=== PATIENT | male | born 1940 | race Caucasian/White ===

== ENCOUNTER 2021-03-30 15:40 | Inpatient (IN) | payer MEDICARE, OTHER, SELFPAY ==
[2021-03-30] MEDS ORDERED: Sodium Chloride 0.9% 10 ML Syringe FLUSH PRN (15:54)
[2021-03-30] MEDS ORDERED: Diltiazem 50 MG/10 ML SDV IVPUSH ONE (15:57)
[2021-03-30] MEDS ORDERED: Sodium Chloride 0.9% 1,000 ML IV SCH (16:00)
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
--- NOTE | 2021-03-30 17:00 | CR ---
Chest: Portable view of the chest was obtained. Comparison: Prior chest x-ray of 04/11/16. Heart size and mediastinum are normal. Slight atelectasis is seen within the left lung base. Lungs otherwise are clear. Previous cervical spine surgery is noted. Mild degenerative change is scattered within the thoracic spine. Osteopenia is present. Impression: 1. Findings as noted above. 2. Nothing acute is seen on portable chest x-ray. Diagnostic code #2
--- NOTE | 2021-03-30 17:05 | CT ---
Head CT Technique: Multiple axial sections through the brain were obtained. Intravenous contrast was not utilized. Reconstructed coronal and sagittal images were obtained. Comparison: No prior intracranial imaging is available. Findings: Ventricles along with basal cisterns and sulci over the convexities are mildly prominent. Diminished density is noted within the periventricular and subcortical white matter which is felt compatible with small vessel ischemic demyelination change. No evidence of intracranial hemorrhage is seen. No midline shift or mass-effect is seen. Bone window settings were reviewed. Visualized mastoid sinuses are clear. Slight mucosal thickening is seen within the ethmoid sinuses. No acute calvarial finding is appreciated. Impression: 1. Senescent change as described above. 2. Slight mucosal thickening within the ethmoid sinuses which is most likely chronic. 3. No acute intracranial abnormality is appreciated on noncontrast head CT study. Diagnostic code #2
[2021-03-30] MEDS ORDERED: Diltiazem 100 MG in Sodium Chloride 0.9% 100 ML IV SCH (17:30)
[2021-03-30] MEDS ORDERED: Ondansetron 4 MG/2 ML SDV IV PRN (20:46)
[2021-03-30] MEDS ORDERED: Acetaminophen 325 MG Tab PO PRN (20:46)
[2021-03-30] MEDS ORDERED: Albuterol 0.083% 2.5 MG/3 ML Neb Soln NEB PRN (20:46)
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
[2021-03-30] MEDS ORDERED: Insulin Glargine,Human Rec. Analog 100 Units/ML 3 ML Pen SUBCUT SCH ×2 (21:00)
[2021-03-30] MEDS ORDERED: Insulin Glargine,Hum.Rec.Anlog 100 UNIT/ML 3 ML Pen SUBCUT SCH (21:00)
[2021-03-30] MEDS: Insulin Lispro 100 Unit/ML 3 ML KwikPen SUBCUT SCH (22:17)
[2021-03-31] MEDS ORDERED: Insulin Lispro 100 Unit/ML 3 ML KwikPen SUBCUT SCH ×4 (07:00→16:00)
[2021-03-31 07:25] LABS: HEMOGLOBIN A1C 8.9 %
[2021-03-31] MEDS: Insulin Lispro 100 Unit/ML 3 ML KwikPen SUBCUT SCH (07:30)
[2021-03-31] MEDS ORDERED: Apixaban 5 MG Tab PO SCH (09:00)
[2021-03-31] MEDS ORDERED: Enoxaparin 40 MG/0.4 ML Syringe SUBCUT SCH (09:00)
[2021-03-31 09:23] VITALS: BP 132/59; PULSE 71
--- NOTE | 2021-03-31 10:49 | PCM.DCSUM1 ---
Discharge Summary - Hospital Course HPI Initial Comments: - History of Present Illness Initial Comments - Free Text/Narative: 80-year-old male was brought to the emergency department by EMS after being found unresponsive outdoor in his riding lawn more/snowblower. Patient was using the plastic cab converter and his significant other found him slumped over in a ditch with the motor running and the wheels still turning. When she went out there he was unresponsive and called EMS. Patient has a history of low blood sugars, as low as in the 20s because of his irregular diet and insulin regimen. On EMS arrived he was given glucose without improvement. On arrival in the emergency department the RN thought he smelled like exhaust so a carboxyhemoglobin was run and it was significantly elevated at 30.2. Patient was also found to be in atrial fibrillation with heart rates above 110. He was given diltiazem 20 mg IV push and started on a diltiazem drip. He was also put on high flow nonrebreather oxygen. Troponin level was slightly elevated and felt to be secondary to demand ischemia. Patient was very confused on arrival and when I spoke with him so history was obtained through significant other and emergency department notes. Patient was then transferred to the ICU. Assessment/Plan Comment:: 86-year-old male with history of diabetes mellitus, insulin-dependent, admitted with carbon monoxide poisoning and A. fib with RVR. Carbon monoxide poisoning * Secondary to riding lawn more with enclosed after market cabin * Started on nonrebreather oxygen in the emergency department * Patient starting to become less confused and more alert Atrial fibrillation with RVR Elevated troponin * New onset A. fib * Heart rates in the 110s to 130s * Started on diltiazem drip in the emergency department * Mild increase in troponin of 0.06 likely secondary to demand ischemia * This will likely resolve with improvement of carbon monoxide poisoning and rate control. Insulin-dependent type 2 diabetes with history of hypoglycemic episodes. * There is some confusion on how much insulin he is on. The chart has 14 of Lantus and he states is 18. There is also differences in fast acting insulin. * Patient states he often has high and low blood sugars. * He also states he is noncompliant with his diet and just gives himself more insulin when he eats poorly. Plan * Admit to ICU * Continue diltiazem drip to keep rate under 100 * Continue high flow nonrebreather * Recheck carboxyhemoglobin * Restart home insulin dose when taking orally * Recheck CBC, CMP, and magnesium * VTE prophylaxis with Lovenox * CODE STATUS: Full code * Anticipate discharge in 1 to 2 days. - Mortality Measure Prognosis:: Good Diagnosis: Stroke: No - Discharge Data Discharge Date: 03/31/21 Discharge Disposition: Home, Self-Care 01 Condition: Good - Referral to Home Health Primary Care Physician: Carmen Randle - Discharge Diagnosis/Problem(s) (1) Atrial fibrillation with RVR SNOMED Code(s): 798698840055358 ICD Code: I48.91 - UNSPECIFIED ATRIAL FIBRILLATION Status: Acute Current Visit: No (2) Carbon monoxide poisoning SNOMED Code(s): 82692439 ICD Code: T58.91XA - TOXIC EFFECT OF CARB MONX FROM UNSP SOURCE, ACC, INIT Status: Acute Current Visit: No - Patient Summary/Data Hospital Course: Patient had an uneventful course. He had a drop in his her carboxyhemoglobin to 4 and we kept him on 100% O2 for another 2 to 3 hours. Patient converted to normal sinus rhythm early this morning. Patient did have one low blood sugar in the 40s while here after getting mealtime insulin and sliding scale. Hemoglobin A1c was 8.9. Patient will be discharged home in good condition. - Patient Instructions Diet: Usual Diet as Tolerated, Diabetic Diet Driving: May Drive Today Showering/Bathing: May Shower Notify Provider of: Fever, Nausea and/or Vomiting Other/Special Instructions: Follow up with PCP. - Discharge Plan *PRESCRIPTION DRUG MONITORING PROGRAM REVIEWED*: No *COPY OF PRESCRIPTION DRUG MONITORING REPORT IN PATIENT ALBERTO: No Home Medications: Home Meds Insulin Aspart [NovoLOG] 5 unit SUBCUT BIDMEALS 04/11/16 [History] Insulin Glarg,Human.Rec.Analog [Lantus Solostar] 14 unit SUBCUT BEDTIME 04/11/16 [History] Oxygen Therapy Mode: Room Air Patient Handouts: Steps to Quit Smoking, [id number], Diabetes Mellitus and Sick Day Management, Atrial Fibrillation Referrals: Darby Greene MD [Ordering Only Provider] - (Please follow-up with Dr. Greene at the [facility]. They will call you Saturday or Saturday to schedule an appointment, if they do not call Saturday please call them to schedule your hospital follow up and establish care. ) - Discharge Summary/Plan Comment DC Time >30 min.: Yes Total # of Minutes for Discharge Time: 40 minutes. total time spent includes seeing the patient, doing discharge paperwork, and arranging care. - General Info Date of Service: 03/31/21 Admission Dx/Problem (Free Text: Admission Diagnosis/Problem Admission Diagnosis/Problem Atrial fibrillation Subjective Update: Patient is wide awake and alert this morning. He has no complaints. Functional Status: Reports: Pain Controlled - Review of Systems General: Reports: No Symptoms HEENT: Reports: No Symptoms Pulmonary: Reports: No Symptoms Cardiovascular: Reports: No Symptoms Musculoskeletal: Reports: No Symptoms Neurological: Reports: No Symptoms Psychiatric: Reports: No Symptoms - Patient Data Vitals - Most Recent: Last Vital Signs Temp 97.8 F 03/31/21 08:03 Pulse 71 03/31/21 08:03 Resp 20 03/31/21 08:03 BP 132/59 L 03/31/21 08:03 Pulse Ox 98 03/31/21 08:03 Weight - Most Recent: 138 lb I&O - Last 24 hours: Intake & Output 03/30/21 03/31/21 03/31/21 22:59 06:59 14:59 Intake Total 609 Balance 609 Lab Results - Last 24 hrs: Laboratory Results - last 24 hr 03/30/21 03/30/21 03/30/21 Range/Units 15:51 15:56 16:35 WBC 17.65 H (4.23-9.07) K/mm3 RBC 4.68 (4.63-6.08) M/mm3 Hgb 14.3 D (13.7-17.5) gm/dl Hct 42.4 (40.1-51.0) % MCV 90.6 (79.0-92.2) fl MCH 30.6 (25.7-32.2) pg MCHC 33.7 (32.2-35.5) g/dl RDW Std Deviation 42.7 (35.1-43.9) fL Plt Count 249 (163-337) K/mm3 MPV 10.1 (9.4-12.3) fl Neut % (Auto) 88.2 H (34.0-67.9) % Lymph % (Auto) 5.8 L (21.8-53.1) % [place] % (Auto) 5.6 (5.3-12.2) % Eos % (Auto) 0.1 L (0.8-7.0) Baso % (Auto) 0.1 (0.1-1.2) % Neut # (Auto) 15.58 H (1.78-5.38) K/mm3 Lymph # (Auto) 1.03 L (1.32-3.57) K/mm3 [place] # (Auto) 0.98 H (0.30-0.82) K/mm3 Eos # (Auto) 0.01 L (0.04-0.54) K/mm3 Baso # (Auto) 0.02 (0.01-0.08) K/mm3 ABG Carboxyhemoglobin (0.00-1.50) %THgb Sodium (136-145) mEq/L Potassium (3.5-5.1) mEq/L Chloride (98-107) mEq/L Carbon Dioxide (21-32) mEq/L Anion Gap (5-15) BUN (7-18) mg/dL Creatinine (0.7-1.3) mg/dL Est Cr Clr Drug Dosing Estimated GFR (MDRD) (>60) mL/min BUN/Creatinine Ratio (14-18) Glucose (70-99) mg/dL POC Glucose 149 H (70-99) mg/dL Hemoglobin A1c ( - 5.6) % Calcium (8.5-10.1) mg/dL Phosphorus (2.6-4.7) mg/dL Magnesium (1.8-2.4) mg/dL Total Bilirubin (0.2-1.0) mg/dL AST (15-37) U/L ALT (16-63) U/L Alkaline Phosphatase (46-116) U/L Troponin I (0.00-0.056) ng/mL NT-Pro-B Natriuret Pep (0-450) pg/mL Total Protein (6.4-8.2) g/dl Albumin (3.4-5.0) g/dl Globulin gm/dL Albumin/Globulin Ratio (1-2) SARS-CoV-2 RNA (MAHESH) Negative (NEGATIVE) 03/30/21 03/30/21 03/30/21 Range/Units 16:35 16:35 16:40 WBC (4.23-9.07) K/mm3 RBC (4.63-6.08) M/mm3 Hgb (13.7-17.5) gm/dl Hct (40.1-51.0) % MCV (79.0-92.2) fl MCH (25.7-32.2) pg MCHC (32.2-35.5) g/dl RDW Std Deviation (35.1-43.9) fL Plt Count (163-337) K/mm3 MPV (9.4-12.3) fl Neut % (Auto) (34.0-67.9) % Lymph % (Auto) (21.8-53.1) % [place] % (Auto) (5.3-12.2) % Eos % (Auto) (0.8-7.0) Baso % (Auto) (0.1-1.2) % Neut # (Auto) (1.78-5.38) K/mm3 Lymph # (Auto) (1.32-3.57) K/mm3 [place] # (Auto) (0.30-0.82) K/mm3 Eos # (Auto) (0.04-0.54) K/mm3 Baso # (Auto) (0.01-0.08) K/mm3 ABG Carboxyhemoglobin 30.7 H (0.00-1.50) %THgb Sodium 139 (136-145) mEq/L Potassium 3.5 (3.5-5.1) mEq/L Chloride 102 (98-107) mEq/L Carbon Dioxide 26 (21-32) mEq/L Anion Gap 14.5 (5-15) BUN 19 H (7-18) mg/dL Creatinine 1.2 (0.7-1.3) mg/dL Est Cr Clr Drug Dosing TNP Estimated GFR (MDRD) 58 (>60) mL/min BUN/Creatinine Ratio 15.8 (14-18) Glucose 145 H (70-99) mg/dL POC Glucose (70-99) mg/dL Hemoglobin A1c ( - 5.6) % Calcium 9.4 (8.5-10.1) mg/dL Phosphorus (2.6-4.7) mg/dL Magnesium (1.8-2.4) mg/dL Total Bilirubin 0.5 (0.2-1.0) mg/dL AST 25 (15-37) U/L ALT 24 (16-63) U/L Alkaline Phosphatase 79 (46-116) U/L Troponin I 0.060 H* (0.00-0.056) ng/mL NT-Pro-B Natriuret Pep 499 H (0-450) pg/mL Total Protein 7.3 (6.4-8.2) g/dl Albumin 3.8 (3.4-5.0) g/dl Globulin 3.5 gm/dL Albumin/Globulin Ratio 1.1 (1-2) SARS-CoV-2 RNA (MAHESH) (NEGATIVE) 03/30/21 03/30/21 03/30/21 Range/Units 19:32 20:54 22:15 WBC (4.23-9.07) K/mm3 RBC (4.63-6.08) M/mm3 Hgb (13.7-17.5) gm/dl Hct (40.1-51.0) % MCV (79.0-92.2) fl MCH (25.7-32.2) pg MCHC (32.2-35.5) g/dl RDW Std Deviation (35.1-43.9) fL Plt Count (163-337) K/mm3 MPV (9.4-12.3) fl Neut % (Auto) (34.0-67.9) % Lymph % (Auto) (21.8-53.1) % [place] % (Auto) (5.3-12.2) % Eos % (Auto) (0.8-7.0) Baso % (Auto) (0.1-1.2) % Neut # (Auto) (1.78-5.38) K/mm3 Lymph # (Auto) (1.32-3.57) K/mm3 [place] # (Auto) (0.30-0.82) K/mm3 Eos # (Auto) (0.04-0.54) K/mm3 Baso # (Auto) (0.01-0.08) K/mm3 ABG Carboxyhemoglobin 4.4 H (0.00-1.50) %THgb Sodium (136-145) mEq/L Potassium (3.5-5.1) mEq/L Chloride (98-107) mEq/L Carbon Dioxide (21-32) mEq/L Anion Gap (5-15) BUN (7-18) mg/dL Creatinine (0.7-1.3) mg/dL Est Cr Clr Drug Dosing Estimated GFR (MDRD) (>60) mL/min BUN/Creatinine Ratio (14-18) Glucose (70-99) mg/dL POC Glucose 189 H 330 H (70-99) mg/dL Hemoglobin A1c ( - 5.6) % Calcium (8.5-10.1) mg/dL Phosphorus (2.6-4.7) mg/dL Magnesium (1.8-2.4) mg/dL Total Bilirubin (0.2-1.0) mg/dL AST (15-37) U/L ALT (16-63) U/L Alkaline Phosphatase (46-116) U/L Troponin I (0.00-0.056) ng/mL NT-Pro-B Natriuret Pep (0-450) pg/mL Total Protein (6.4-8.2) g/dl Albumin (3.4-5.0) g/dl Globulin gm/dL Albumin/Globulin Ratio (1-2) SARS-CoV-2 RNA (MHAESH) (NEGATIVE) 03/31/21 03/31/21 03/31/21 Range/Units 05:40 05:40 05:40 WBC 9.78 H (4.23-9.07) K/mm3 RBC 4.13 L (4.63-6.08) M/mm3 Hgb 12.2 L D (13.7-17.5) gm/dl Hct 37.9 L (40.1-51.0) % MCV 91.8 (79.0-92.2) fl MCH 29.5 (25.7-32.2) pg MCHC 32.2 (32.2-35.5) g/dl RDW Std Deviation 44.4 H (35.1-43.9) fL Plt Count 207 (163-337) K/mm3 MPV 10.6 (9.4-12.3) fl Neut % (Auto) 73.5 H (34.0-67.9) % Lymph % (Auto) 17.6 L (21.8-53.1) % [place] % (Auto) 8.4 (5.3-12.2) % Eos % (Auto) 0.1 L (0.8-7.0) Baso % (Auto) 0.3 (0.1-1.2) % Neut # (Auto) 7.19 H (1.78-5.38) K/mm3 Lymph # (Auto) 1.72 (1.32-3.57) K/mm3 [place] # (Auto) 0.82 (0.30-0.82) K/mm3 Eos # (Auto) 0.01 L (0.04-0.54) K/mm3 Baso # (Auto) 0.03 (0.01-0.08) K/mm3 ABG Carboxyhemoglobin (0.00-1.50) %THgb Sodium 140 (136-145) mEq/L Potassium 4.1 (3.5-5.1) mEq/L Chloride 104 (98-107) mEq/L Carbon Dioxide 28 (21-32) mEq/L Anion Gap 12.1 (5-15) BUN 24 H (7-18) mg/dL Creatinine 1.1 (0.7-1.3) mg/dL Est Cr Clr Drug Dosing 46.63 Estimated GFR (MDRD) > 60 (>60) mL/min BUN/Creatinine Ratio 21.8 H (14-18) Glucose 255 H (70-99) mg/dL POC Glucose (70-99) mg/dL Hemoglobin A1c 8.9 H ( - 5.6) % Calcium 9.0 (8.5-10.1) mg/dL Phosphorus 3.0 (2.6-4.7) mg/dL Magnesium 2.2 (1.8-2.4) mg/dL Total Bilirubin 0.4 (0.2-1.0) mg/dL AST 58 H (15-37) U/L ALT 36 (16-63) U/L Alkaline Phosphatase 70 (46-116) U/L Troponin I (0.00-0.056) ng/mL NT-Pro-B Natriuret Pep (0-450) pg/mL Total Protein 6.0 L (6.4-8.2) g/dl Albumin 3.2 L (3.4-5.0) g/dl Globulin 2.8 gm/dL Albumin/Globulin Ratio 1.1 (1-2) SARS-CoV-2 RNA (MAHESH) (NEGATIVE) 03/31/21 03/31/21 03/31/21 Range/Units 05:53 09:55 10:13 WBC (4.23-9.07) K/mm3 RBC (4.63-6.08) M/mm3 Hgb (13.7-17.5) gm/dl Hct (40.1-51.0) % MCV (79.0-92.2) fl MCH (25.7-32.2) pg MCHC (32.2-35.5) g/dl RDW Std Deviation (35.1-43.9) fL Plt Count (163-337) K/mm3 MPV (9.4-12.3) fl Neut % (Auto) (34.0-67.9) % Lymph % (Auto) (21.8-53.1) % [place] % (Auto) (5.3-12.2) % Eos % (Auto) (0.8-7.0) Baso % (Auto) (0.1-1.2) % Neut # (Auto) (1.78-5.38) K/mm3 Lymph # (Auto) (1.32-3.57) K/mm3 [place] # (Auto) (0.30-0.82) K/mm3 Eos # (Auto) (0.04-0.54) K/mm3 Baso # (Auto) (0.01-0.08) K/mm3 ABG Carboxyhemoglobin (0.00-1.50) %THgb Sodium (136-145) mEq/L Potassium (3.5-5.1) mEq/L Chloride (98-107) mEq/L Carbon Dioxide (21-32) mEq/L Anion Gap (5-15) BUN (7-18) mg/dL Creatinine (0.7-1.3) mg/dL Est Cr Clr Drug Dosing Estimated GFR (MDRD) (>60) mL/min BUN/Creatinine Ratio (14-18) Glucose (70-99) mg/dL POC Glucose 253 H 46 L* 50 L* (70-99) mg/dL Hemoglobin A1c ( - 5.6) % Calcium (8.5-10.1) mg/dL Phosphorus (2.6-4.7) mg/dL Magnesium (1.8-2.4) mg/dL Total Bilirubin (0.2-1.0) mg/dL AST (15-37) U/L ALT (16-63) U/L Alkaline Phosphatase (46-116) U/L Troponin I (0.00-0.056) ng/mL NT-Pro-B Natriuret Pep (0-450) pg/mL Total Protein (6.4-8.2) g/dl Albumin (3.4-5.0) g/dl Globulin gm/dL Albumin/Globulin Ratio (1-2) SARS-CoV-2 RNA (MAHESH) (NEGATIVE) 03/31/21 Range/Units 10:40 WBC (4.23-9.07) K/mm3 RBC (4.63-6.08) M/mm3 Hgb (13.7-17.5) gm/dl Hct (40.1-51.0) % MCV (79.0-92.2) fl MCH (25.7-32.2) pg MCHC (32.2-35.5) g/dl RDW Std Deviation (35.1-43.9) fL Plt Count (163-337) K/mm3 MPV (9.4-12.3) fl Neut % (Auto) (34.0-67.9) % Lymph % (Auto) (21.8-53.1) % [place] % (Auto) (5.3-12.2) % Eos % (Auto) (0.8-7.0) Baso % (Auto) (0.1-1.2) % Neut # (Auto) (1.78-5.38) K/mm3 Lymph # (Auto) (1.32-3.57) K/mm3 [place] # (Auto) (0.30-0.82) K/mm3 Eos # (Auto) (0.04-0.54) K/mm3 Baso # (Auto) (0.01-0.08) K/mm3 ABG Carboxyhemoglobin (0.00-1.50) %THgb Sodium (136-145) mEq/L Potassium (3.5-5.1) mEq/L Chloride (98-107) mEq/L Carbon Dioxide (21-32) mEq/L Anion Gap (5-15) BUN (7-18) mg/dL Creatinine (0.7-1.3) mg/dL Est Cr Clr Drug Dosing Estimated GFR (MDRD) (>60) mL/min BUN/Creatinine Ratio (14-18) Glucose (70-99) mg/dL POC Glucose 71 (70-99) mg/dL Hemoglobin A1c ( - 5.6) % Calcium (8.5-10.1) mg/dL Phosphorus (2.6-4.7) mg/dL Magnesium (1.8-2.4) mg/dL Total Bilirubin (0.2-1.0) mg/dL AST (15-37) U/L ALT (16-63) U/L Alkaline Phosphatase (46-116) U/L Troponin I (0.00-0.056) ng/mL NT-Pro-B Natriuret Pep (0-450) pg/mL Total Protein (6.4-8.2) g/dl Albumin (3.4-5.0) g/dl Globulin gm/dL Albumin/Globulin Ratio (1-2) SARS-CoV-2 RNA (MAHESH) (NEGATIVE) Med Orders - Current: Current Medications Acetaminophen (Acetaminophen 325 Mg Tab) 650 mg PO Q4H PRN PRN Reason: Pain (Mild 1-3)/fever Albuterol (Albuterol 0.083% 2.5 Mg/3 Ml Neb Soln) 2.5 mg NEB Q2H PRN PRN Reason: Shortness Of Breath/wheezing Diltiazem HCl 100 mg/ Sodium (Chloride) 100 mls @ 5 mls/hr IV TITRATE [place]; Protocol Last Titration: 03/31/21 01:47 Dose: 0 mg/hr, 0 mls/hr Documented by: Insulin Glargine (Insulin Glargine,Hum.Rec.Anlog 100 Unit/Ml 3 Ml Pen) 18 unit SUBCUT BEDTIME [place] Insulin Human Lispro (Insulin Lispro 100 Unit/Ml 3 Ml Kwikpen) 0 unit SUBCUT QIDACANDBED [place]; Protocol Last Admin: 03/31/21 07:30 Dose: 6 units Documented by: Insulin Human Lispro (Insulin Lispro 100 Unit/Ml 3 Ml Kwikpen) 6 unit SUBCUT TIDMEALS [place] Last Admin: 03/31/21 07:30 Dose: 6 units Documented by: Ondansetron HCl (Ondansetron 4 Mg/2 Ml Sdv) 4 mg IV Q6H PRN PRN Reason: Nausea/Vomiting Sodium Chloride (Sodium Chloride 0.9% 10 Ml Syringe) 10 ml FLUSH ASDIRECTED PRN PRN Reason: Keep Vein Open Last Admin: 03/30/21 16:41 Dose: 10 ml Documented by: Discontinued Medications Apixaban (Apixaban 5 Mg Tab) 5 mg PO BID [facility] Diltiazem HCl (Diltiazem 50 Mg/10 Ml Sdv) 20 mg IVPUSH ONETIME ONE Stop: 03/30/21 15:58 Last Admin: 03/30/21 16:41 Dose: 20 mg Documented by: Enoxaparin Sodium (Enoxaparin 40 Mg/0.4 Ml Syringe) 40 mg SUBCUT DAILY [facility] Sodium Chloride (Normal Saline) 1,000 mls @ 999 mls/hr IV ONETIME [place] Last Admin: 03/30/21 16:41 Dose: 999 mls/hr Documented by: Insulin Glargine (Insulin Glargine,Human Rec. Analog 100 Units/Ml 3 Ml Pen) 14 units SUBCUT BEDTIME [place] Insulin Glargine (Insulin Glargine,Human Rec. Analog 100 Units/Ml 3 Ml Pen) 18 units SUBCUT BEDTIME [facility] Last Admin: 03/30/21 22:19 Dose: 18 units Documented by: Insulin Human Lispro (Insulin Lispro 100 Unit/Ml 3 Ml Kwikpen) 8 unit SUBCUT ACDINNER [facility] Insulin Human Lispro (Insulin Lispro 100 Unit/Ml 3 Ml Kwikpen) 5 unit SUBCUT BID@0700,1200 [facility] Insulin Human Lispro (Insulin Lispro 100 Unit/Ml 3 Ml Kwikpen) 8 unit SUBCUT ACDINNER [facility] - Exam Quality Assessment: Denies: Supplemental Oxygen General: Reports: Alert, Oriented HEENT: Reports: Pupils Equal, Mucous Membr. Moist/[place] Neck: Reports: Supple Lungs: Reports: Clear to Auscultation, Normal Respiratory Effort Cardiovascular: Reports: Regular Rate, Regular Rhythm GI/Abdominal Exam: Normal Bowel Sounds, Soft, Non-Tender, No Organomegaly, No Distention, No Abnormal Bruit, No Mass Extremities: Normal Inspection, Normal Range of Motion, Non-Tender, No Pedal Edema, Normal Capillary Refill Skin: Reports: Warm, Dry, Intact Neurological: Reports: No New Focal Deficit Psy/Mental Status: Reports: Alert, Normal Affect, Normal Mood
--- NOTE | 2021-03-31 10:59 | PCM.EKG ---
#1 Interpretation EKG Date: 03/31/21 Time: 07:36 Rhythm: NSR Rate (Beats/Min): 68 [place]: Normal P-Wave: Present QRS: Normal ST-T: Normal QT: Normal Comparison: Change From Previous EKG EKG Interpretation Comments: Back to sinus rhythm. Nonspecific ST wave changes in the lateral leads. Abnormal EKG
[2021-03-31] MEDS ORDERED: Insulin Glargine,Hum.Rec.Anlog 100 UNIT/ML 3 ML Pen SUBCUT SCH (21:00)
== END 2021-03-31 11:20 | disposition home or self-care (01) | DRG 918 ==
LOC: JD.ED 15:40 → JD.ICU 18:42
PROVIDERS: ADMIT Family Medicine; ATTEND Family Medicine
DX: T58.91XA Toxic effect of carbon monoxide from unspecified source, accidental (unintentional), initial encounter (principal); I24.8 Other forms of acute ischemic heart disease; I48.91 Unspecified atrial fibrillation; H54.7 Unspecified visual loss; M19.90 Unspecified osteoarthritis, unspecified site; Z20.822 Contact with and (suspected) exposure to COVID-19; E11.9 Type 2 diabetes mellitus without complications; Z79.4 Long term (current) use of insulin; Z86.73 Personal history of transient ischemic attack (TIA), and cerebral infarction without residual deficits
CPT/HCPCS: 36415; 70450; 71045; 80053; 82375; 82947; 83880; 84484; 85025; 87635; 93005; J3490; J7030; 83036; 83735; 84100; A9270-GY; J1815; U0002

== ENCOUNTER 2023-05-16 13:57 | Emergency (ER) | payer MEDICARE, OTHER ==
[2023-05-16] MEDS ORDERED: Sodium Chloride 0.9% 10 ML Syringe FLUSH PRN (14:18)
[2023-05-16 14:53] LABS: BASOPHILS PERCENT AUTO 0.5 % (0.0-1.0); EOSINOPHILS PERCENT AUTO 0.1 % (0.0-6.0); HEMATOCRIT 42.5 % (42.0-52.0); HEMOGLOBIN 14.2 gm/dl (14.0-18.0); IMMATURE GRAN ABSOLUTE AUTO 0.02 K/mm3 (0.00-0.05); IMMATURE GRAN PERCENT AUTO 0.2 % (0.0-0.4); LYMPHOCYTES ABSOLUTE AUTO 0.9 K/mm3 (1.0-4.8); LYMPHOCYTES PERCENT AUTO 10.4 % (24.0-44.0); MEAN CORPUSCULAR HEMOGLOBIN 30.4 pg (28.0-32.0); MEAN CORPUSCULAR HGB CONC 33.4 g/dl (32.0-36.0); MEAN PLATELET VOLUME 10.3 fl (9.4-12.4); MONOCYTES ABSOLUTE AUTO 0.5 K/mm3 (0.0-0.8); MONOCYTES PERCENT AUTO 5.6 % (0.0-8.0); NEUTROPHILS ABSOLUTE AUTO 7.1 K/mm3 (1.8-7.7); NEUTROPHILS PERCENT AUTO 83.2 % (41.0-71.0); PLATELET COUNT,PLT 175 K/mm3 (150-400); RED BLOOD CELL COUNT 4.67 M/mm3 (4.52-5.90); WHITE BLOOD CELL COUNT,WBC 8.52 K/mm3 (3.9-11.3)
[2023-05-16 15:16] LABS: A/G RATIO 1.2 (1-2); ALBUMIN 3.7 g/dl (3.4-5.0); ANION GAP 11.2 (5-15); BILIRUBIN TOTAL 0.6 mg/dL (0.2-1.0); BUN/CREATININE RATIO 29.1 (14-18); CALCIUM 9.8 mg/dL (8.5-10.1); CREATININE 1.1 mg/dL (0.7-1.3); EST CRCL DRUG DOSING (CG) 43.42 mL/min; POTASSIUM,K 4.2 mEq/L (3.5-5.1); PROTEIN TOTAL,TP 6.9 g/dl (6.4-8.2)
[2023-05-16 17:13] VITALS: BP 147/57; PULSE 56
== END 2023-05-16 16:30 | disposition home or self-care (01) ==
LOC: JD.ED 13:57
DX: R55 Syncope and collapse (principal); E11.9 Type 2 diabetes mellitus without complications; F17.210 Nicotine dependence, cigarettes, uncomplicated; Z86.73 Personal history of transient ischemic attack (TIA), and cerebral infarction without residual deficits; Z79.4 Long term (current) use of insulin; Z79.01 Long term (current) use of anticoagulants; Z79.899 Other long term (current) drug therapy
CPT/HCPCS: 36415; 71045; 71045-26; 80053; 84484; 85025; 93005; 93010; 99282; 99284